=== PATIENT | female | born 2000 | race Caucasian/White ===

== ENCOUNTER → 2021-02-20 | Outpatient (CLI) | payer OTHER ==
--- NOTE | 2021-02-20 09:50 | RAD ---
EXAM: Pelvic sonogram. HISTORY: Abnormal menses. TECHNIQUE: Sonographic imaging of the pelvis was performed. COMPARISON: None. FINDINGS: The uterus measures 7.4 x 5.1 x 2.7 cm. The endometrial stripe measures 2 mm in thickness. The ovaries are normal in size and demonstrate normal blood flow. There is no pelvic free fluid. The urinary bladder is unremarkable. IMPRESSION: Unremarkable pelvic sonogram. Electronically signed by: aCrie Murillo MD (02/20/2021 9:48 AM) [id number]
== END ==
LOC: US 08:52
PROVIDERS: ATTEND Family Medicine
DX: N92.6 Irregular menstruation, unspecified (principal); N93.9 Abnormal uterine and vaginal bleeding, unspecified
CPT/HCPCS: 76856